=== PATIENT | female | born 1975 | race Caucasian/White ===

== ENCOUNTER 2022-12-21 09:51 | Day surgery (SDC) | payer BC ==
[~2022-12-21] VITALS: Ht 157.5 cm; Wt 72.1 kg
[2022-12-21 11:20] VITALS: BP 131/91; PULSE 65; TEMP 97.8
[2022-12-21] MEDS ORDERED: PRILOSEC 20MG20 MG PO (11:26)
[2022-12-21] MEDS ORDERED: ZYRTEC 10MG10 MG PO (11:26)
[2022-12-21 12:20] VITALS: BP 133/87; PULSE 63; TEMP 97
[2022-12-21 12:35] VITALS: BP 134/80; PULSE 56
[2022-12-21 12:50] VITALS: BP 136/88; PULSE 55
[2022-12-21 13:05] VITALS: BP 150/95; PULSE 53
[2022-12-21 13:20] VITALS: BP 148/80; PULSE 55
--- NOTE | 2022-12-21 16:50 | NUR ---
1220: PATIENT TO BAY 5 PER CART FROM ENDO SUITE. REPORT RECEIVED FROM ENDO NURSE. VS OBTAINED. BREATHING EVEN AND UNLABORED. PATIENT C/O NAUSEA AT THIS TIME. RESTING IN RECLINER. PATIENT DOES NOT WANT ANY FOOD OR DRINK AT THIS TIME. BOYFRIEND AT SIDE. CALL LIGHT IN REACH. WILL CONTINUE TO MONITOR. 1235: VS REMAIN STABLE. PATIENT STATED NAUSEA IS GETTING BETTER. REQUESTED ICE CHIPS AT THIS TIME. RESTING IN RECLINER. CALL LIGHT IN REACH. 1250: VS REMAIN STABLE. TOLERATING ICE CHIPS. NAUSEA CONTINUES TO IMPROVE AT THIS TIME. 1315: DR. WALDEN IN TO TALK TO PATIENT AT THIS TIME. 1320: VS REMAIN STABLE. NO FURTHER C/O NAUSEA. RESTING IN RECLINER. CALL LIGHT IN REACH. 1328: IV DC'D AT THIS TIME. 1340: DISCHARGE EDUCATION COMPLETED. PATIENT STATED UNDERSTANDING OF INSTRUCTIONS. DISCHARGE PAPER WORK GIVEN TO PATIENT. PATIENT DENIES ANY ASSISTANCE WITH DRESSING 1345: PATIENT OFF UNIT VIA WHEELCHAIR. PATIENT DISCHARGED HOME WITH BOYFRIEND VIA PRIVATE VEHICLE.
== END 2022-12-21 13:45 | disposition home or self-care (01) ==
LOC: SDCO 09:51
DX: K57.30 Diverticulosis of large intestine without perforation or abscess without bleeding (principal); K64.0 First degree hemorrhoids; K44.9 Diaphragmatic hernia without obstruction or gangrene; R14.0 Abdominal distension (gaseous); R10.9 Unspecified abdominal pain; R68.81 Early satiety; R19.7 Diarrhea, unspecified; K59.09 Other constipation; R12 Heartburn; Z28.310 Unvaccinated for COVID-19; Z79.899 Other long term (current) drug therapy; Z80.0 Family history of malignant neoplasm of digestive organs
CPT/HCPCS: J2704; J3010; J7120